=== PATIENT | female | born 1955 | race Caucasian/White ===

== ENCOUNTER 2021-05-23 22:09 | Emergency (ER) | payer MEDICARE ==
[~2021-05-23] VITALS: Ht 172.7 cm; Wt 113.7 kg
[2021-05-23 22:15] VITALS: BP 109/97
--- NOTE | 2021-05-23 22:43 | NUR ---
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
== END 2021-05-23 23:58 | disposition home or self-care (01) ==
LOC: ED 23:00
DX: K08.89 Other specified disorders of teeth and supporting structures (principal); Z20.822 Contact with and (suspected) exposure to COVID-19
CPT/HCPCS: 99283; U0003; U0005

== ENCOUNTER → 2021-06-12 | Outpatient (CLI) | payer MEDICARE ==
[~2021-06-12] MED LIST: APIX5TAB PO; ATEN25TA PO; LISI-170 PO; METO25TA35 PO; OMEP20CA20 PO; ZOLP10TA PO
[2021-06-12 12:03] LABS: BASOPHILS % (AUTO) 1 % (0-1); EOSINOPHILS % (AUTO) 2 % (1-7); LYMPHOCYTES % (AUTO) 39 % (22-44); MEAN CORPUSCULAR HEMOGLOBIN 32.6 pg (27.0-34.8); MEAN CORPUSCULAR HGB CONC 35.4 g/dL (32.4-35.8); MEAN PLATELET VOLUME 8.6 fL (7.4-10.4); MONOCYTES % (AUTO) 10 % (2-9); NEUTROPHILS % (AUTO) 47 % (42-75); PLATELET COUNT 230 x10^3/uL (130-400); RED BLOOD COUNT 4.88 x10^6/uL (3.82-5.3); RED CELL DISTRIBUTION WIDTH 12.7 % (9.6-15.2)
[2021-06-12 12:14] LABS: ALANINE AMINOTRANSFERASE 65 U/L (12-78); ALBUMIN 3.9 g/dL (3.4-5.0); ANION GAP 8 mmol/L (5-15); CHLORIDE 106 mmol/L (98-107); CREATININE 1.02 mg/dL (0.55-1.02)
[2021-06-12 12:19] LABS: ALKALINE PHOSPHATASE 88 U/L (45-117); BILIRUBIN,TOTAL 0.6 mg/dL (0.2-1.0); TOTAL PROTEIN 8.4 g/dL (6.4-8.2)
== END | disposition home or self-care (01) ==
LOC: RAD 10:38
PROVIDERS: ATTEND Internal Medicine Cardiovascular Disease
DX: I10 Essential (primary) hypertension (principal); R06.02 Shortness of breath; I48.91 Unspecified atrial fibrillation
CPT/HCPCS: 36415; 71046; 80053; 83880; 85025

== ENCOUNTER → 2021-06-24 | Outpatient (CLI) | payer MEDICARE ==
[2021-06-24 13:05] LABS: FOLATE LEVEL 7.5 ng/mL (3.1-17.5); FREE T4 (FREE THYROXINE) 1.22 ng/dL (0.76-1.46)
== END | disposition home or self-care (01) ==
LOC: LAB 12:06
PROVIDERS: ATTEND Internal Medicine
DX: K76.0 Fatty (change of) liver, not elsewhere classified (principal); R19.7 Diarrhea, unspecified; R10.10 Upper abdominal pain, unspecified
CPT/HCPCS: 36415; 82607; 82728; 82746; 83540; 83550; 84439; 84443; 86704; 86706; 87340

== ENCOUNTER 2021-06-26 18:50 | Emergency (ER) | payer MEDICARE ==
[~2021-06-26] VITALS: Ht 172.7 cm; Wt 108.0 kg
[2021-06-26 19:27] LABS: BASOPHILS % (AUTO) 1 % (0-1); EOSINOPHILS % (AUTO) 3 % (1-7); LYMPHOCYTES % (AUTO) 38 % (22-44); MEAN CORPUSCULAR HEMOGLOBIN 32.1 pg (27.0-34.8); MEAN CORPUSCULAR HGB CONC 35.4 g/dL (32.4-35.8); MEAN PLATELET VOLUME 8.8 fL (7.4-10.4); MONOCYTES % (AUTO) 9 % (2-9); NEUTROPHILS % (AUTO) 49 % (42-75); PLATELET COUNT 216 x10^3/uL (130-400); RED BLOOD COUNT 4.72 x10^6/uL (3.82-5.3); RED CELL DISTRIBUTION WIDTH 12.7 % (9.6-15.2)
[2021-06-26] MEDS ORDERED: SODIUM CHLORIDE FLUSH 10ML SYR IVF ONE (19:30)
[2021-06-26 19:39] LABS: ALANINE AMINOTRANSFERASE 47 U/L (12-78); ANION GAP 11 mmol/L (5-15); CALCIUM 10.7 mg/dL (8.5-10.1); CHLORIDE 105 mmol/L (98-107); CREATININE 1.72 mg/dL (0.55-1.02)
[2021-06-26 19:43] LABS: ALKALINE PHOSPHATASE 96 U/L (45-117); BILIRUBIN,TOTAL 0.5 mg/dL (0.2-1.0); TOTAL PROTEIN 8.3 g/dL (6.4-8.2); TROPONIN I < 0.015 ng/mL (0.000-0.045)
--- NOTE | 2021-06-26 19:46 | NUR ---
PT BACK TO ROOM
[2021-06-26] MEDS ORDERED: LORazepam 2 MG/ML, 1ML ONE (20:28)
[2021-06-26] MEDS ORDERED: LORazepam 2 MG/ML, 1ML IVPush ONE (20:30)
--- NOTE | 2021-06-26 20:40 | NUR ---
Task RN: medicated patient per mar.
--- NOTE | 2021-06-26 21:07 | NUR ---
PATIENT RESTING ON GURNEY USING PERSONAL CELL PHONE, PATIENT APPEARS CALM AND IS COOPERATIVE WITH THIS ASSESSMENT. PATIENT REQUESTED AND GIVEN AN ICE PACK AND SOME WATER. PATIENT STATES "I FEEL MUCH BETER THAN WHEN I CAME IN"
[2021-06-26 21:54] VITALS: BP 96/50
--- NOTE | 2021-06-26 21:54 | NUR ---
PATIENT RESTING ON LEISA AVERY AT THIS TIME. PATIENT REPORTS HER BP AT HOME HAS BEEN LOW WHEN SHE TAKES IT, 90-100 SYSTOLIC AND 40-50 DIASTOLIC
[2021-06-26] MEDS ORDERED: SODIUM CHLORIDE 0.9% 1,000ML IVBOLUS ONE (22:00)
--- NOTE | 2021-06-26 22:41 | NUR ---
PATIENT ASSISTED TO BATHROOM, AMBULATES WITH A STEADY GAIT. UA COLLECTED. PATIENT ASSISTED BACK TO HER ROOM, CONNECTED BACK TO MONITOR.
[2021-06-26 23:21] LABS: MICROSCOPIC INDICATED
--- NOTE | 2021-06-27 00:16 | NUR ---
Patient given discharge instructions and they have confirmed that they understand the instructions. Patient ambulatory with steady gait. NAD, all questions answered appropriately, denies additional needs at this time. No personal belongings left in room after discharge.
== END 2021-06-27 00:19 | disposition home or self-care (01) ==
LOC: ED 21:04
DX: E86.0 Dehydration (principal); N28.9 Disorder of kidney and ureter, unspecified; R06.02 Shortness of breath; R50.9 Fever, unspecified; R07.89 Other chest pain; R00.0 Tachycardia, unspecified; I10 Essential (primary) hypertension; I48.91 Unspecified atrial fibrillation
CPT/HCPCS: 36415; 71045; 80053; 81001; 83690; 83880; 84443; 84484; 85025; 85379; 87077; 87086; 87186; 93005; 96374; 99285; J2060; J7030

== ENCOUNTER → 2021-06-30 | Outpatient (CLI) | payer MEDICARE ==
[~2021-06-30] MED LIST changes: +OMNIPAQUE 350 MG/ML, 100ML BOTTLE ONE
== END | disposition home or self-care (01) ==
LOC: CFH 07:07
PROVIDERS: ATTEND Family Medicine
DX: K57.30 Diverticulosis of large intestine without perforation or abscess without bleeding (principal); K44.9 Diaphragmatic hernia without obstruction or gangrene; E04.2 Nontoxic multinodular goiter; R19.7 Diarrhea, unspecified; K21.9 Gastro-esophageal reflux disease without esophagitis; K76.0 Fatty (change of) liver, not elsewhere classified; R10.10 Upper abdominal pain, unspecified
CPT/HCPCS: 74177; 76536; 82565; Q9967

== ENCOUNTER 2021-07-22 13:40 | Emergency (ER) | payer MEDICARE ==
[~2021-07-22] VITALS: Ht 175.3 cm; Wt 108.2 kg
[~2021-07-22 13:40] MED LIST changes: -OMNIPAQUE 350 MG/ML, 100ML BOTTLE ONE
[2021-07-22] MEDS ORDERED: SODIUM CHLORIDE FLUSH 10ML SYR IVF ONE (14:30)
[2021-07-22 14:35] LABS: BASOPHILS % (AUTO) 1 % (0-1); EOSINOPHILS % (AUTO) 4 % (1-7); LYMPHOCYTES % (AUTO) 40 % (22-44); MEAN CORPUSCULAR HEMOGLOBIN 31.9 pg (27.0-34.8); MEAN CORPUSCULAR HGB CONC 35.1 g/dL (32.4-35.8); MEAN PLATELET VOLUME 7.9 fL (7.4-10.4); MONOCYTES % (AUTO) 12 % (2-9); NEUTROPHILS % (AUTO) 44 % (42-75); PLATELET COUNT 208 x10^3/uL (130-400); RED BLOOD COUNT 4.11 x10^6/uL (3.82-5.3); RED CELL DISTRIBUTION WIDTH 13.1 % (9.6-15.2)
[2021-07-22 14:44] LABS: ALANINE AMINOTRANSFERASE 33 U/L (12-78); ALBUMIN 3.3 g/dL (3.4-5.0); ANION GAP 8 mmol/L (5-15); CALCIUM 9.5 mg/dL (8.5-10.1); CHLORIDE 103 mmol/L (98-107); CREATININE 1.06 mg/dL (0.55-1.02)
[2021-07-22 14:48] LABS: ALKALINE PHOSPHATASE 79 U/L (45-117); BILIRUBIN,TOTAL 0.4 mg/dL (0.2-1.0); TOTAL PROTEIN 7.8 g/dL (6.4-8.2); TROPONIN I < 0.015 ng/mL (0.000-0.045)
[2021-07-22 15:04] VITALS: BP 101/66
== END 2021-07-22 15:13 | disposition home or self-care (01) ==
LOC: ED 15:06
DX: I48.0 Paroxysmal atrial fibrillation (principal); R07.89 Other chest pain; I10 Essential (primary) hypertension
CPT/HCPCS: 36415; 71045; 80053; 84484; 85025; 93005; 99285